=== PATIENT | male | born 1960 | race Caucasian/White ===

== ENCOUNTER 2018-05-20 07:48 | Emergency (ER) | payer MEDICAID, OTHER ==
[~2018-05-20] VITALS: Ht 172.7 cm; Wt 76.4 kg
[2018-05-20] MEDS ORDERED: PLEASE ENTER HEIGHT AND WEIGHT MC SCH (08:30)
[2018-05-20] MEDS ORDERED: PLEASE ENTER ALLERGIES MC SCH (08:30)
[2018-05-20] MEDS ORDERED: KETOROLAC 30 MG/1 ML IM ONE (08:30)
[2018-05-20] MEDS ORDERED: DIAZEPAM 5 MG TABLET PO ONE (08:30)
[2018-05-20] MEDS ORDERED: AMLODIPINE 5 MG TABLET PO ONE (08:30)
[2018-05-20] MEDS ORDERED: HYDROcodone/APAP 5/325 TABLET PO ONE (08:30)
[2018-05-20] MEDS ORDERED: KETOROLAC 30 MG/1 ML ONE (08:45)
[2018-05-20] MEDS ORDERED: AMLODIPINE 5 MG TABLET ONE (08:45)
[2018-05-20] MEDS ORDERED: HYDROcodone/APAP 5/325 TABLET ONE (08:46)
[2018-05-20] MEDS ORDERED: DIAZEPAM 5 MG TABLET ONE (08:46)
[2018-05-20 09:32] VITALS: BP 175/100
== END 2018-05-20 09:49 | disposition home or self-care (01) ==
LOC: ED 09:45
DX: S39.012A Strain of muscle, fascia and tendon of lower back, initial encounter (principal); Z76.0 Encounter for issue of repeat prescription; I10 Essential (primary) hypertension; X58.XXXA Exposure to other specified factors, initial encounter; Y93.89 Activity, other specified; Y92.89 Other specified places as the place of occurrence of the external cause; Y99.8 Other external cause status
CPT/HCPCS: 72110; 96372; 99284; J1885